=== PATIENT | female | born 1925 | race Caucasian/White ===

== ENCOUNTER 2016-11-06 13:00 | Inpatient (IN) | payer OTHER ==
[~2016-11-06] VITALS: Ht 152.4 cm; Wt 81.7 kg
[~2016-11-06 13:00] MED LIST: ADULT LOW DOSE81 M1 PO; AMLODIPINE BESY10 MG PO; APRESOLINE10 MG PO; APRESOLINE25 MG PO; CALCIUM 500 WI1 EAC2 PO; CALTRATE 600 +1 EAC1 PO; CALTRATE 6001 TABLE1 PO; CENTRUM SILVER1 EAC3 PO; DAILY VITAMIN1 EAC4 PO; DAILY VITAMIN1 EAC8 PO; DIOVAN HCT 31 TABLE1 PO; FISH OIL 1,0001 EAC7 PO; FISH OIL300 MG PO; FOLIC ACID1 MG PO; HYDROCHLOROTHIA25 MG PO; K-DUR10 ME1 PO; K-DUR10 MEQ PO; LO-DOSE ASPIRIN81 M1 PO; LOTREL 5/201 CAPSULE PO; METHOTREXATE2.5 MG PO; METOPROLOL SUC100 MG PO; MIRALAX17 GM PO; NORVASC10 MG PO; PERCOCET 5/31 TABLET PO; POLYETHYLENE G255 GM PO; POTASSIUM CHLO10 ME3 PO; PRILOSEC20 MG PO; PROTONIX40 MG PO; TOPROL XL100 MG PO; VALSARTAN-HCTZ1 EAC3 PO; VITAMIN E PO; VITAMIN E400 UNI6 PO
[2016-11-06 13:40] LABS: HEMATOCRIT 39.7 % (36.0-46.0); MCH 31.4 PG (29.0-34.0); MCHC 33.5 G/DL (30.0-36.0); MCV 93.9 FL (83-99); MEAN PLAT.VOLUME 10.7 uM^3 (9.5-12.4); PLATELET COUNT 225 K/uL (156-360); RBC DIS.WIDTH-SD 44.2 % (39-53); RED BLOOD COUNT 4.23 M/uL (3.80-5.20); WHITE BLOOD COUNT 7.5 K/uL (4.1-10.2)
[2016-11-06 13:54] LABS: INFLUENZA A VIRAL ANTIGEN NEGATIVE; INFLUENZA B VIRAL ANTIGEN NEGATIVE
[2016-11-06 14:01] LABS: TROP-I INTERPRETATION NEGATIVE; TROPONIN-I 0.02 ng/mL (0.0-0.30)
[2016-11-06 14:03] LABS: ANION GAP 10 MEQ/L (2-14); CHLORIDE 99 MEQ/L (99-109); POTASSIUM 3.3 MEQ/L (3.7-5.4); SAMPLE HEMOLYSIS CHECK 0; SAMPLE ICTERIC CHECK 0; SAMPLE LIPEMIA CHECK 0; SODIUM 142 MEQ/L (136-147); TOTAL BILIRUBIN 0.6 MG/DL (0.0-1.0)
[2016-11-06 14:09] LABS: ALKALINE PHOSPHATASE 64 IU/L (3-129); GFR ESTIMATE (CALCULATED) > 59 mL/min/; GLUCOSE 111 mg/dL (70-99); UREA NITROGEN (BUN) 17 mg/dL (9-23)
[2016-11-06] MEDS ORDERED: APRESOLINE25 MG PO (16:44)
[2016-11-06] MEDS ORDERED: KLOR-CON M1010 MEQ PO (16:46)
[2016-11-06] MEDS ORDERED: DIOVAN HCT 31 TABLE1 PO (16:47)
[2016-11-06] MEDS ORDERED: FISH OIL300 MG PO (16:48)
[2016-11-06 18:48] VITALS: BP 126/52
[2016-11-06 19:30] VITALS: BP 135/46
[2016-11-06 20:17] LABS: TROP-I INTERPRETATION NEGATIVE; TROPONIN-I 0.07 ng/mL (0.0-0.30)
[2016-11-06 23:15] VITALS: BP 133/46
[2016-11-07 02:02] VITALS: BP 148/78
[2016-11-07 02:24] LABS: TROP-I INTERPRETATION INDETERMINATE; TROPONIN-I 0.31 ng/mL (0.0-0.30)
[2016-11-07 07:20] VITALS: BP 143/74
[2016-11-07 08:11] LABS: INTERNAL CONTROL VALID? YES
[2016-11-07 08:11] LABS: HEMATOCRIT 35.1 % (36.0-46.0); MCHC 32.8 G/DL (30.0-36.0); MCV 94.6 FL (83-99); MEAN PLAT.VOLUME 10.7 uM^3 (9.5-12.4); PLATELET COUNT 191 K/uL (156-360); RBC DIS.WIDTH-CV 13.1 % (11.8-14.6); RBC DIS.WIDTH-SD 44.9 % (39-53); RED BLOOD COUNT 3.71 M/uL (3.80-5.20)
[2016-11-07 08:28] LABS: ANION GAP 7 MEQ/L (2-14); CHLORIDE 100 MEQ/L (99-109); GFR ESTIMATE (CALCULATED) 30 mL/min/; GLUCOSE 154 mg/dL (70-99); POTASSIUM 4.1 MEQ/L (3.7-5.4); SAMPLE HEMOLYSIS CHECK 0; SAMPLE ICTERIC CHECK 0; SAMPLE LIPEMIA CHECK 0; SODIUM 137 MEQ/L (136-147); UREA NITROGEN (BUN) 25 mg/dL (9-23)
[2016-11-07 08:39] LABS: TROP-I INTERPRETATION NEGATIVE; TROPONIN-I 0.18 ng/mL (0.0-0.30)
[2016-11-07 13:17] VITALS: BP 127/60
[2016-11-07 14:28] LABS: TROP-I INTERPRETATION NEGATIVE; TROPONIN-I 0.12 ng/mL (0.0-0.30)
[2016-11-07 15:33] VITALS: BP 142/65
[2016-11-07 17:20] LABS: INTER. NORMALIZED RATIO 1.1; PROTHROMBIN TIME 10.8 (9.2-11.2); PTT 27.4 (25-32)
[2016-11-07 20:02] VITALS: BP 163/72
[2016-11-08 00:18] VITALS: BP 159/78
[2016-11-08 03:50] VITALS: BP 168/75
[2016-11-08 07:40] VITALS: BP 145/88
[2016-11-08 09:06] LABS: HEMATOCRIT 35.6 % (36.0-46.0); MCH 30.5 PG (29.0-34.0); MCHC 32.9 G/DL (30.0-36.0); MEAN PLAT.VOLUME 10.7 uM^3 (9.5-12.4); PLATELET COUNT 214 K/uL (156-360); RBC DIS.WIDTH-CV 12.7 % (11.8-14.6); RBC DIS.WIDTH-SD 43.4 % (39-53); RED BLOOD COUNT 3.83 M/uL (3.80-5.20)
[2016-11-08 09:07] LABS: WHITE BLOOD COUNT 8.8 K/uL (4.1-10.2)
[2016-11-08 11:01] LABS: ANION GAP 10 MEQ/L (2-14); CHLORIDE 103 MEQ/L (99-109); GFR ESTIMATE (CALCULATED) 41 mL/min/; GLUCOSE 129 mg/dL (70-99); SAMPLE HEMOLYSIS CHECK 0; SAMPLE ICTERIC CHECK 0; SAMPLE LIPEMIA CHECK 0; SODIUM 138 MEQ/L (136-147); UREA NITROGEN (BUN) 32 mg/dL (9-23)
[2016-11-08 11:02] LABS: POTASSIUM 5.1 MEQ/L (3.7-5.4)
[2016-11-08 11:38] VITALS: BP 177/89
[2016-11-08 16:01] VITALS: BP 137/72
[2016-11-08 18:20] VITALS: BP 146/69
[2016-11-09 00:25] VITALS: BP 139/63
[2016-11-09 01:41] LABS: HEMATOCRIT 27.4 % (36.0-46.0); MCV 93.2 FL (83-99)
[2016-11-09 04:13] VITALS: BP 152/62
[2016-11-09 07:06] LABS: HEMATOCRIT 26.1 % (36.0-46.0); MCV 93.2 FL (83-99)
[2016-11-09 07:50] VITALS: BP 136/60
[2016-11-09 08:48] LABS: MCH 30.8 PG (29.0-34.0); MCHC 32.7 G/DL (30.0-36.0); MEAN PLAT.VOLUME 11.4 uM^3 (9.5-12.4); PLATELET COUNT 214 K/uL (156-360); RBC DIS.WIDTH-CV 13.1 % (11.8-14.6); RBC DIS.WIDTH-SD 45.2 % (39-53); WHITE BLOOD COUNT 10.4 K/uL (4.1-10.2)
[2016-11-09 08:56] LABS: RED BLOOD COUNT 2.73 M/uL (3.80-5.20)
[2016-11-09 09:04] LABS: ANION GAP 8 MEQ/L (2-14); CHLORIDE 101 MEQ/L (99-109); GFR ESTIMATE (CALCULATED) 35 mL/min/; GLUCOSE 119 mg/dL (70-99); POTASSIUM 4.8 MEQ/L (3.7-5.4); SAMPLE HEMOLYSIS CHECK 0; SAMPLE ICTERIC CHECK 0; SAMPLE LIPEMIA CHECK 0; SODIUM 134 MEQ/L (136-147); UREA NITROGEN (BUN) 41 mg/dL (9-23)
[2016-11-09 11:30] VITALS: BP 137/60
[2016-11-09 15:12] LABS: HEMATOCRIT 25.6 % (36.0-46.0); MCV 93.4 FL (83-99)
[2016-11-09 16:35] VITALS: BP 157/67
[2016-11-09 20:14] VITALS: BP 119/55
[2016-11-09 23:29] LABS: MCV 93.4 FL (83-99)
[2016-11-10] VITALS (13 sets, daily range): BP systolic 134–170; BP diastolic 62–73
[2016-11-10 07:29] LABS: HEMATOCRIT 22.6 % (36.0-46.0); MCH 30.9 PG (29.0-34.0); MCHC 33.2 G/DL (30.0-36.0); MEAN PLAT.VOLUME 11.3 uM^3 (9.5-12.4); PLATELET COUNT 182 K/uL (156-360); RBC DIS.WIDTH-CV 13.2 % (11.8-14.6); RED BLOOD COUNT 2.43 M/uL (3.80-5.20); WHITE BLOOD COUNT 8.3 K/uL (4.1-10.2)
[2016-11-10 07:38] LABS: ANION GAP 5 MEQ/L (2-14); CHLORIDE 102 MEQ/L (99-109); GFR ESTIMATE (CALCULATED) 38 mL/min/; GLUCOSE 139 mg/dL (70-99); POTASSIUM 4.9 MEQ/L (3.7-5.4); SAMPLE HEMOLYSIS CHECK 0; SAMPLE ICTERIC CHECK 0; SAMPLE LIPEMIA CHECK 0; SODIUM 135 MEQ/L (136-147); UREA NITROGEN (BUN) 40 mg/dL (9-23)
[2016-11-10 23:34] LABS: HEMATOCRIT 29.3 % (36.0-46.0)
[2016-11-11] VITALS (7 sets, daily range): BP systolic 149–188; BP diastolic 68–82
[2016-11-11 06:32] LABS: HEMATOCRIT 30.4 % (36.0-46.0); MCH 30.3 PG (29.0-34.0); MCHC 33.2 G/DL (30.0-36.0); MCV 91.3 FL (83-99); MEAN PLAT.VOLUME 11.2 uM^3 (9.5-12.4); NRBC (%) 0.3 /100 WBC (0-0); PLATELET COUNT 183 K/uL (156-360); RBC DIS.WIDTH-SD 46.6 % (39-53)
[2016-11-11 06:39] LABS: RED BLOOD COUNT 3.33 M/uL (3.80-5.20); WHITE BLOOD COUNT 10.9 K/uL (4.1-10.2)
[2016-11-11 09:54] LABS: CHLORIDE 106 mEq/L (99-109); POTASSIUM 4.3 mEq/L (3.7-5.4); SODIUM 140 mEq/L (136-147)
[2016-11-11 09:56] LABS: GLUCOSE 109 mg/dL (70-99)
[2016-11-11 09:57] LABS: ANION GAP 12 MEQ/L (2-14)
[2016-11-11 10:00] LABS: GFR ESTIMATE (CALCULATED) 55 mL/min/
[2016-11-11 10:01] LABS: UREA NITROGEN (BUN) 32 mg/dL (9-23)
[2016-11-12] VITALS (8 sets, daily range): BP systolic 128–198; BP diastolic 54–86
[2016-11-12 06:50] LABS: HEMATOCRIT 31.4 % (36.0-46.0); MCH 30.4 PG (29.0-34.0); MCHC 33.1 G/DL (30.0-36.0); MCV 91.8 FL (83-99); MEAN PLAT.VOLUME 10.8 uM^3 (9.5-12.4); NRBC (%) 0.6 /100 WBC (0-0); PLATELET COUNT 180 K/uL (156-360); RED BLOOD COUNT 3.42 M/uL (3.80-5.20); WHITE BLOOD COUNT 10.3 K/uL (4.1-10.2)
[2016-11-12 07:00] LABS: ANION GAP 7 MEQ/L (2-14); CHLORIDE 101 MEQ/L (99-109); GFR ESTIMATE (CALCULATED) > 59 mL/min/; GLUCOSE 87 mg/dL (70-99); POTASSIUM 3.7 MEQ/L (3.7-5.4); SAMPLE HEMOLYSIS CHECK 0; SAMPLE ICTERIC CHECK 0; SAMPLE LIPEMIA CHECK 0; SODIUM 141 MEQ/L (136-147); UREA NITROGEN (BUN) 25 mg/dL (9-23)
[2016-11-13 03:15] VITALS: BP 142/60
[2016-11-13 07:10] LABS: HEMATOCRIT 35.4 % (36.0-46.0); MCH 31.1 PG (29.0-34.0); MCHC 33.9 G/DL (30.0-36.0); MCV 91.7 FL (83-99); MEAN PLAT.VOLUME 10.7 uM^3 (9.5-12.4); NRBC (%) 0.4 /100 WBC (0-0); PLATELET COUNT 219 K/uL (156-360); RBC DIS.WIDTH-CV 13.9 % (11.8-14.6); RBC DIS.WIDTH-SD 46.3 % (39-53); RED BLOOD COUNT 3.86 M/uL (3.80-5.20); WHITE BLOOD COUNT 12.9 K/uL (4.1-10.2)
[2016-11-13 07:32] LABS: ANION GAP 7 MEQ/L (2-14); CHLORIDE 97 MEQ/L (99-109); GFR ESTIMATE (CALCULATED) > 59 mL/min/; GLUCOSE 92 mg/dL (70-99); POTASSIUM 3.7 MEQ/L (3.7-5.4); SAMPLE HEMOLYSIS CHECK 0; SAMPLE ICTERIC CHECK 0; SAMPLE LIPEMIA CHECK 0; SODIUM 139 MEQ/L (136-147); UREA NITROGEN (BUN) 22 mg/dL (9-23)
[2016-11-13 07:40] VITALS: BP 154/74
[2016-11-13 16:00] VITALS: BP 134/68
[2016-11-13 23:23] VITALS: BP 158/70
[2016-11-14] MEDS ORDERED: SPIRIVA RESPIMAT4 GM IH (11:34)
[2016-11-14] MEDS ORDERED: ADVAIR HFA120 INHALA IH (11:35)
[2016-11-14] MEDS ORDERED: DELTASONE20 M1 PO (11:36)
[2016-11-14] MEDS ORDERED: LEVOFLOXACIN750 MG PO (11:37)
== END 2016-11-14 14:00 | disposition home or self-care (01) | DRG 177 ==
LOC: EME 13:00 → EDOF 16:35 → 4EAST 16:35 → EDOF 17:14 → 4EAST 18:25 → 2EASTP 11-08 18:07
PROVIDERS: Emergency Medicine; Hospitalist; Internal Medicine; Nurse Practitioner Family; Physician Assistant
PROC: 30233N1 Transfusion of Nonautologous Red Blood Cells into Peripheral Vein, Percutaneous Approach (ICD-10-PCS; principal; 2016-11-10)
DX: J69.0 Pneumonitis due to inhalation of food and vomit (principal); J96.01 Acute respiratory failure with hypoxia; N17.9 Acute kidney failure, unspecified; J98.11 Atelectasis; R04.2 Hemoptysis; D62 Acute posthemorrhagic anemia; I50.32 Chronic diastolic (congestive) heart failure; J98.2 Interstitial emphysema; I48.91 Unspecified atrial fibrillation; E87.6 Hypokalemia; M79.81 Nontraumatic hematoma of soft tissue; I10 Essential (primary) hypertension; M06.9 Rheumatoid arthritis, unspecified; E78.5 Hyperlipidemia, unspecified; T45.515A Adverse effect of anticoagulants, initial encounter; I34.0 Nonrheumatic mitral (valve) insufficiency; I27.2 Other secondary pulmonary hypertension; K21.9 Gastro-esophageal reflux disease without esophagitis; I65.29 Occlusion and stenosis of unspecified carotid artery; Z77.22 Contact with and (suspected) exposure to environmental tobacco smoke (acute) (chronic); E66.9 Obesity, unspecified; Z91.041 Radiographic dye allergy status; Z68.33 Body mass index [BMI] 33.0-33.9, adult; Z88.0 Allergy status to penicillin; Z87.11 Personal history of peptic ulcer disease
CPT/HCPCS: 71010; 71020; 71250; 74176; 80048; 80053; 83605; 84443; 84484; 85014; 85018; 85027; 85610; 85730; 86850; 86900; 86901; 86920; 87040; 87070; 87205; 87449; 87502; 92610 GN; 93005; 93306; 94010; 94640; 94640 76; 94644; 94667; 94668; 94799; 99202; 99281; 99285; J1160; J1650; J1956; J2405; J2920; J3480; J7512; J7644; P9016; S0028